=== PATIENT | male | born 1950 | race Caucasian/White ===

== ENCOUNTER 2017-11-13 05:40 | Outpatient (CLI) | payer MEDICARE, OTHER ==
[~2017-11-13] VITALS: Ht 185.4 cm; Wt 88.5 kg
[~2017-11-13 05:40] MED LIST: ASPI-586 PO; LOSA50TA36 PO
[2017-11-19] MEDS ORDERED: SUCR1TAB36 PO (10:51)
[2017-11-19] MEDS ORDERED: PANT40TA2 PO (10:51)
== END 2017-11-13 15:06 ==
LOC: PREOP 05:40
PROVIDERS: ATTEND Surgery
DX: Z01.818 Encounter for other preprocedural examination (principal); K21.9 Gastro-esophageal reflux disease without esophagitis; R14.2 Eructation

== ENCOUNTER 2017-11-19 09:17 | Day surgery (SDC) | payer MEDICARE, OTHER ==
[~2017-11-19] VITALS: Ht 185.4 cm; Wt 88.5 kg
[2017-11-19] MEDS ORDERED: LACTATED RINGERS 1,000 ML IV STA (09:49)
[2017-11-19] MEDS ORDERED: LACTATED RINGERS 1,000 ML IV ONE (09:53)
[2017-11-19 10:15] VITALS: BP 148/91
[2017-11-19] MEDS ORDERED: MIDAZOLAM 2 MG/2 ML (VERSED) VIAL ONE (10:15)
[2017-11-19] MEDS ORDERED: proPOfol 200 MG/20 ML (DIPRIVAN) VIAL IV ONE (10:15)
[2017-11-19] MEDS ORDERED: LIDOCAINE PF 2% 5 ML (XYLOCAINE) VIAL ONE (10:15)
--- NOTE | 2017-11-19 10:20 | Progress Note-Pre Operative ---
Pre-Operative Progress Note H&P Reviewed The H&P was reviewed, patient examined and no changes noted. Date Seen by Provider: Nov 19, 2017 Time Seen by Provider: : Date H&P Reviewed: Nov 19, 2017 Time H&P Reviewed: : Pre-Operative Diagnosis: GERD GALINA JAFFE DO Nov 19, 2017 10:20
[2017-11-19] MEDS ORDERED: ASPI-983 PO (10:22)
[2017-11-19] MEDS ORDERED: HURRICAINE EXT TUBE (BENZOCAINE) ONE (10:30)
--- NOTE | 2017-11-19 10:47 | Anesthesia-General Post-Op ---
MAC Patient Condition Mental Status/LOC: Same as Preop Cardiovascular: Satisfactory Nausea/Vomiting: Absent Respiratory: Satisfactory Pain: Controlled Complications: Absent Post Op Complications Complications None Follow Up Care/Instructions Patient Instructions None needed. Anesthesiology Discharge Order Discharge Order Patient is doing well, no complaints, stable vital signs, no apparent adverse anesthesia problems. No complications reported per nursing. PIERRE BRYAN CRNA Nov 19, 2017 10:47
--- NOTE | 2017-11-19 10:48 | Progress Note-Post Operative ---
Post-Operative Progess Note Surgeon (s)/Ross Lift Operator (s) Surgeon GALINA JAFFE DO Ross Lift Operator: na Pre-Operative Diagnosis GERD Post-Operative Diagnosis gastritis, hiatal hernia, reflux esophagitis Procedure & Operative Findings Date of Procedure 11/19/17 Procedure Performed/Findings egd c biopsies Anesthesia Type per modern languages professor Estimated Blood Loss Estimated blood loss (mL): scant Specimens/Packing Specimens Removed antrum, distal esophagus GALINA JAFFE DO Nov 19, 2017 10:48
[2017-11-19] MEDS ORDERED: SUCR1TAB36 PO (10:51)
[2017-11-19] MEDS ORDERED: PANT40TA2 PO (10:51)
--- NOTE | 2017-11-19 10:52 | Discharge Inst-Simple/Standard ---
Discharge Inst-Standard Discharge Medications New, Converted or Re-Newed RX: Transmitted to Pharmacy Patient Instructions/Follow Up Plan of Care/Instructions/FU: 2 weeks [place] Activity as Tolerated: Yes Discharge Diet: Regular Diet GALINA JAFFE DO Nov 19, 2017 10:52
[2017-11-19 11:00] VITALS: BP 127/80
[2017-11-19] MEDS ORDERED: HURRICAINE EXT TUBE (BENZOCAINE) XX ONE (11:00)
[2017-11-19 11:25] VITALS: BP 141/99
[2017-11-19 11:32] VITALS: BP 141/99
--- NOTE | 2017-11-19 18:44 | OPERATIVE REPORT ---
DATE OF SERVICE: 11/19/2017 PREOPERATIVE DIAGNOSIS: Gastroesophageal reflux disease. POSTOPERATIVE DIAGNOSES: Gastritis, hiatal hernia, reflux esophagitis. PROCEDURE: EGD with biopsy. SURGEON: Galina Whelan DO ANESTHESIA: Per DAIRY TRUCK DRIVER. ESTIMATED BLOOD LOSS: Scant. COMPLICATIONS: None. INDICATIONS: The patient is a 67-year-old male, who has been having gastroesophageal reflux disease and belching. He understands the risks and benefits of procedure and wished to proceed with procedure. Consent was signed on chart. PROCEDURE: The patient was taken to the endoscopy suite, placed in left later lateral recumbent position, timeout was performed. Scope was inserted in the mouth, down into esophagus. In the distal esophagus there was an area that has a little bit of blood and questionable ulceration present. Scope was passed through this without any difficulty and then into the duodenum without difficulty. There were no polyps, masses or ulcerations within the duodenum. Scope was slowly retracted back into the stomach where there are some erythematous patches consistent with gastritis. Biopsies were obtained. Scope was retroflexed noting hiatal hernia with some slight erythematous changes present. No other pathology noted. Scope was returned to his normal position slowly withdrawn back into the distal esophagus. There are some erythematous changes consistent with reflux esophagitis. There is one area where there is a little bit of bleeding from the biopsy of this area was obtained. The scope was then slowly retracted back until completely removed. RECOMMENDATIONS: The patient will be started on Protonix 40 mg daily and Carafate 1 gram 4 times a day. I will see him in 2 weeks to discuss pathology results. We would recommend repeat endoscopy in 3 months to reevaluate the area and rebiopsy depending upon pathology results. Job ID: [id number] DocumentID: [id number] Dictated Date: 11/19/2017 10:55:48 Pulverizer Feeder Date: 11/19/2017 18:44:16 Dictated By: GALINA WHELAN DO
== END 2017-11-19 11:33 | disposition home or self-care (01) ==
LOC: ENDO 09:17
PROVIDERS: ATTEND Surgery
DX: K21.0 Gastro-esophageal reflux disease with esophagitis (principal); K44.9 Diaphragmatic hernia without obstruction or gangrene; K29.70 Gastritis, unspecified, without bleeding; I10 Essential (primary) hypertension; Z79.899 Other long term (current) drug therapy

== ENCOUNTER 2018-01-28 05:34 | Outpatient (CLI) | payer MEDICARE, OTHER ==
[~2018-01-28] VITALS: Ht 185.4 cm; Wt 88.5 kg
[~2018-01-28 05:34] MED LIST changes: +ASPI-983 PO; +PANT40TA2 PO; +SUCR1TAB36 PO
[2018-01-28] MEDS ORDERED: PANT40TA3 PO (12:57)
== END 2018-01-28 12:59 | disposition home or self-care (01) ==
LOC: PREOP 05:34
PROVIDERS: ATTEND Surgery
DX: Z01.818 Encounter for other preprocedural examination (principal)

== ENCOUNTER 2018-03-24 04:58 | Emergency (ER) | payer MEDICARE, OTHER ==
[~2018-03-24] VITALS: Ht 185.4 cm; Wt 88.0 kg
[~2018-03-24 04:58] MED LIST changes: +PANT40TA3 PO
--- NOTE | 2018-03-24 05:34 | ED Abdominal Pain ---
General Chief Complaint: Abdominal/GI Problems Stated Complaint: ABD PAIN Nursing Triage Note: PATIENT HERE FOR CONCERNS REGARDING PAIN IN HIS LOWER MIDDLE ABDOMEN THAT STARTED APPROX 2000 YESTERDAY EVENING BEFORE BED. HE STATES THAT HE THINKS HE IS CONSTIPATED HE TRIED TO HAVE A BM AND ONLY A SMALL AMOUNT OF WATERY STILL CAME OUT. HE IS ALSO CONCERNED THAT HE MAY HAVE EATEN RAW HAMBURGER AT A PICNIC YESTERDAY. Sepsis Screen: No Definite Risk Source of Information: Patient Exam Limitations: No Limitations (NIDA CALLAHAN MD) History of Present Illness Date Seen by Provider: Mar 24, 2018 Time Seen by Provider: 05:20 Initial Comments This relatively healthy 67-year-old gentleman presents to the emergency room with complaints of lower abdominal pain starting around 22:00. The pain is constant. He denies any nausea or vomiting. He had been feeling constipated with a small stool yesterday morning. He has had liquid stools in the night 2. He has not taken any medication for the pain. He denies any prior episodes. He does feel bloated. He is afebrile. He has a history of erosive esophagitis and hiatal hernia has diagnosed with Dr. Whelan by EGD. He denies any urinary symptoms such as hesitancy, dysuria, or incomplete void. (NIDA CALLAHAN MD) Allergies and Home Medications Allergies Coded Allergies: No Known Drug Allergies (Unverified , 06/22/16) Home Medications Aspirin 81 Mg Tablet., 81 MG PO DAILY, (Reported) Ciprofloxacin HCl 500 Mg Tablet, 500 MG PO BID Prescribed by: AUDI HERNANDEZ on 03/24/18 0831 Losartan Potassium 50 Mg Tablet, 50 MG PO DAILY, (Reported) Metronidazole 500 Mg Tablet, 500 MG PO BID Prescribed by: AUDI HERNANDEZ on 03/24/18 0831 Pantoprazole Sodium 40 Mg Tablet., 40 MG PO DAILY, (Reported) Patient Home Medication List Home Medication List Reviewed: Yes (NIDA CALLAHAN MD) Review of Systems Constitutional: no symptoms reported EENTM: No Symptoms Reported Respiratory: No Symptoms Reported Cardiovascular: No Symptoms Reported Gastrointestinal: See HPI Genitourinary: No Symptoms Reported Musculoskeletal: no symptoms reported Skin: no symptoms reported Psychiatric/Neurological: No Symptoms Reported Endocrine: No Symptoms Reported Hematologic/Lymphatic: No Symptoms Reported (NIDA CALLAHAN MD) Past Ouucmxg-Fjgnme-Stgtte Hx Patient Social History Alcohol Use: Rarely Uses Recreational Drug Use: No Smoking Status: Never a Smoker 2nd Hand Smoke Exposure: No Recent Foreign Travel: No Contact w/Someone Who Travel: No Recent Infectious Disease Expo: No Recent Hopitalizations: No Physical Abuse: No Sexual Abuse: No (NIDA CALLAHAN MD) Immunizations Up To Date Date of Pneumonia Vaccine: May 22, 2016 Date of Influenza Vaccine: May 22, 2017 (NIDA CALLAHAN MD) Seasonal Allergies Seasonal Allergies: No (NIDA CALLAHAN MD) Past Medical History Surgeries: Yes Abdominal (EGD with biopsy) Respiratory: No Cardiac: Yes Hypertension Neurological: No Gastrointestinal: Yes Gastroesophageal Reflux, Diverticulosis, Esophagitis, Hiatal Hernia Musculoskeletal: No Endocrine: No HEENT: No Cancer: No Psychosocial: No Nursing Suicide Risk Score: 0 Integumentary: No Blood Disorders: No (NIDA CALLAHAN MD) Physical Exam Vital Signs Vital Signs - First Documented 03/24/18 05:05 Temp 96.9 Pulse 70 Resp 20 B/P (MAP) 156/103 (120) Pulse Ox 96 (AUDI HERNANDEZ MD) Vital Signs Capillary Refill : Less Than 3 Seconds (NIDA CALLAHAN MD) Height/Weight/BMI Height: 6'1.00" Weight: 194lbs. 0oz. 87.003140ha; 25.7 BMI Method:Stated General Appearance: WD/WN, no apparent distress HEENT: normal ENT inspection Neck: normal inspection Respiratory: lungs clear, normal breath sounds, no respiratory distress, no accessory muscle use Cardiovascular: regular rate, rhythm, no edema, no murmur Gastrointestinal: normal bowel sounds, soft, distended, other (palpation does not seem to increase his pain. Left upper quadrant is tympanic to percussion) Extremities: normal inspection, no pedal edema Neurologic/Psychiatric: telephone order dispatcher II-XII nml as tested, no motor/sensory deficits, alert, normal mood/affect, oriented x 3 Skin: normal color, warm/dry (NIDA CALLAHAN MD) Progress/Results/Core Measures Results/Orders Lab Results Laboratory Tests Test 8/13/18 05:45 Range/Units White Blood Count 9.3 4.3-11.0 10^3/uL Red Blood Count 4.76 4.35-5.85 10^6/uL Hemoglobin 14.8 13.3-17.7 G/DL Hematocrit 42 40-54 % Mean Corpuscular Volume 88 80-99 FL Mean Corpuscular Hemoglobin 31 25-34 PG Mean Corpuscular Hemoglobin Concent 35 32-36 G/DL Red Cell Distribution Width 13.7 10.0-14.5 % Platelet Count 199 130-400 10^3/uL Mean Platelet Volume 11.0 H 7.4-10.4 FL Neutrophils (%) (Auto) 70 42-75 % Lymphocytes (%) (Auto) 17 12-44 % Monocytes (%) (Auto) 9 0-12 % Eosinophils (%) (Auto) 4 0-10 % Basophils (%) (Auto) 0 0-10 % Neutrophils # (Auto) 6.5 1.8-7.8 X 10^3 Lymphocytes # (Auto) 1.6 1.0-4.0 X 10^3 Monocytes # (Auto) 0.8 0.0-1.0 X 10^3 Eosinophils # (Auto) 0.3 0.0-0.3 10^3/uL Basophils # (Auto) 0.0 0.0-0.1 10^3/uL Urine Color YELLOW Urine Clarity CLEAR Urine pH 7 5-9 Urine Specific [place] 1.010 L 1.016-1.022 Urine Protein NEGATIVE NEGATIVE Urine Glucose (UA) NEGATIVE NEGATIVE Urine Ketones NEGATIVE NEGATIVE Urine Nitrite NEGATIVE NEGATIVE Urine Bilirubin NEGATIVE NEGATIVE Urine Urobilinogen NORMAL NORMAL MG/DL Urine Leukocyte Esterase NEGATIVE NEGATIVE Urine RBC (Auto) 1+ H NEGATIVE Urine RBC 2-5 H /HPF Urine WBC NONE /HPF Urine Squamous Epithelial Cells 0-2 /HPF Urine Crystals NONE /LPF Urine Bacteria NEGATIVE /HPF Urine Casts NONE /LPF Urine Mucus SMALL H /LPF Urine Culture Indicated NO Sodium Level 136 135-145 MMOL/L Potassium Level 4.1 3.6-5.0 MMOL/L Chloride Level 106 98-107 MMOL/L Carbon Dioxide Level 21 21-32 MMOL/L Anion Gap 9 5-14 MMOL/L Blood Urea Nitrogen 13 7-18 MG/DL Creatinine 0.85 0.60-1.30 MG/DL Estimat Glomerular Filtration Rate > 60 BUN/Creatinine Ratio 15 Glucose Level 96 70-105 MG/DL Calcium Level 8.6 8.5-10.1 MG/DL Corrected Calcium 8.5 8.5-10.1 MG/DL Total Bilirubin 1.0 0.1-1.0 MG/DL Aspartate Amino Transf (AST/SGOT) 16 5-34 U/L Alanine Aminotransferase (ALT/SGPT) 20 0-55 U/L Alkaline Phosphatase 74 40-136 U/L Total Protein 7.2 6.4-8.2 GM/DL Albumin 4.1 3.2-4.5 GM/DL Lipase 45 8-78 U/L (AUDI HERNANDEZ MD) My Orders Orders - AUDI HERNANDEZ MD Ct Abdomen/Pelvis W (03/24/18 06:47) Saline Lock/Iv-Start (03/24/18 06:47) Ns Iv 1000 Ml (Sodium Chloride 0.9%) (03/24/18 06:47) Iohexol Injection (Omnipaque 350 Mg/Ml 1 (03/24/18 07:30) Ns (Ivpb) (Sodium Chloride 0.9%) (03/24/18 07:30) (AUDI HERNANDEZ MD) Medications Given in ED Current Medications Medications Dose Ordered Sig/Reese Route Start Time Stop Time Status Last Admin Dose Admin Iohexol 100 ml ONCE ONCE IV 03/24/18 07:30 03/24/18 07:42 DC 03/24/18 07:24 100 ML Sodium Chloride 80 ml ONCE ONCE IV 03/24/18 07:30 03/24/18 07:42 DC 03/24/18 07:24 80 ML Sodium Chloride 1,000 ml @ 0 mls/hr Q0M ONCE IV 03/24/18 06:47 03/24/18 06:48 DC 03/24/18 06:55 0 MLS/HR (AUDI HERNANDEZ MD) Vital Signs/I&O 03/24/18 05:05 Temp 96.9 Pulse 70 Resp 20 B/P (MAP) 156/103 (120) Pulse Ox 96 (AUDI HERNANDEZ MD) Blood Pressure Mean: 120 Progress Progress Note #1: Progress Note Basic workup is being pursued including labs, urinalysis, and KUB and upright abdominal films. Patient declined pain medicine at this time. Progress Note #2: Time: 06:47 Progress Note Workup to this point has been unremarkable. Patient is still having pain. We discussed options for further evaluation including the potential for CT scan. Risks and benefits were reviewed with the patient including radiation exposure, cost, contrast dye allergy, potential for exposure pathology, etc. Patient elects to proceed with CT scan. Care of this patient was transferred to Dr. Hernandze at this time. She continues to decline pain medicine. (NIDA CALLAHAN MD) Progress Note : Progress Note 0700: I have assumed care of the patient from Dr. Rao pending CT. I have reexamined the patient. Specifically tender on exam but does relate the lower abdominal pain. Patient is going to CT now. We have ordered a liter of normal saline. Patient is still declining pain medicine. (AUDI HENRANDEZ MD) Diagnostic Imaging Diagonstic Imaging: Xray Plain Films/CT/US/NM/MRI: abdomen, pelvis Comments X-rays viewed by me and report reviewed. See report below: NAME: LACI SMITH [facility] REC#: [id number] PT STATUS: REG ER : 1950 PHYSICIAN: NIDA CALLAHAN MD ADMIT DATE: 03/24/18/ER Draft Date of Exam:03/24/18 ABDOMEN, FLAT UPRIGHT/DECUB EXAMINATION: Abdominal radiographs, upright and supine views. DATE: March 24, 2018. CLINICAL INDICATION: 67-year-old male, abdominal pain, constipation. COMPARISON: None. COMMENTS: There is a moderate volume stool in the right colon. There are no abnormally distended gas-filled segments of small or large bowel. There is no identified free intraperitoneal air. There is no identified pneumatosis or portal venous gas. There is no identified abnormal radiodensity overlying the kidneys or expected positions of the ureters. IMPRESSION: 1. No acute abdominal radiographic abnormality. 2. Moderate volume stool within the right colon. Dictated on workstation # [id number] Dict: 03/24/18605 Trans: 03/24/18 0617 [id number] Interpreted by: ELIZABETH HOWARD MD (NIDA CALLAHAN MD) Diagonstic Imaging: CT Plain Films/CT/US/NM/MRI: abdomen, pelvis Comments EXAMINATION: CT of the abdomen and pelvis with contrast dated 03/24/2018 FINDINGS: There is diffuse inflammatory change about the sigmoid colon with multiple adjacent diverticuli noted. Wall thickening within the region is also noted. There are a few tiny foci of air along the anterior border of the sigmoid in this region most likely within diverticuli, less likely a tiny focal contained perforation. No abscess is seen at this time. There is no significant free air. The remaining colon demonstrates no acute abnormality. The liver demonstrates fatty infiltration, otherwise unremarkable. The gallbladder, spleen, pancreas, and adrenal glands unremarkable. Small cystic area within the medial aspect of the superior pole of the left kidney noted and too small to characterize. Right kidney contains a large partially exophytic cystic lesion measuring 5.8 cm in greatest dimension. Hounsfield units consistent with a cyst. There is no free fluid or air in the abdomen. There are fat-containing inguinal hernias, left larger than right. Clips along the inguinal regions right greater than left also noted. Prominent but nonenlarged lymph nodes not significantly enlarged lymph nodes seen in the inguinal regions bilaterally as well. There is a tiny hiatal hernia. Visualized lung bases demonstrate nonspecific subpleural nodule within the left lower lobe image #13, 4 mm in size. This could be followed to assure stability as clinically warranted. Especially if there is a history of smoking. Remaining visualized lung bases unremarkable. Osseous structures demonstrate no acute abnormality. Degenerative findings noted in the visualized spine. IMPRESSION: 1. Findings consistent with acute diverticulitis of the sigmoid colon. A few tiny foci of air in the region likely prominent diverticuli rather than a small contained perforation. No significant free air seen. No abscess appreciated. 2. Wall thickening in the region of concern likely secondary to the inflammation although followup is recommended to assure resolution and exclude underlying mass. 3. Other Incidental findings as noted above. Dictated on workstation # [id number] Dict: 03/24/18 0723 Trans: 03/24/18 0751 [id number] Interpreted by: NOE WOODARD MD Electronically signed by: Reviewed: Reviewed by Me (AUDI HERNANDEZ MD) Departure Impression Primary Impression: Diverticulitis of intestine Qualified Codes: K57.32 - Diverticulitis of large intestine without perforation or abscess without bleeding Additional Impression: Pulmonary nodule Disposition: HOME, SELF-CARE Condition: Improved Departure-Patient Inst. Decision time for Depature: 08:27 (AUDI HERNANDEZ MD) Referrals: PEPE COVARRUBIAS MD (PCP/Family) Primary Care Physician Patient Instructions: Acute Abdomen (Belly Pain), Adult (DC), Diverticulitis ( DC), Single Pulmonary Nodule Add. Discharge Instructions: All discharge instructions reviewed with patient and/or family. Voiced understanding. Take medications as directed. Clear liquid diet for 24 hours and then advance as tolerated slowly. You may take Tylenol 1000 mg every 8 hours as needed for pain. You may take ibuprofen 800 mg every 8 hours as needed for pain. Follow- up with your Dr. in a few days for recheck. You do need to follow-up with Dr. Covarrubias related to the small pulmonary nodule just to establish follow-up as needed. Return for worse pain, fever, vomiting, weakness, breathing problems or other concerns as needed. Scripts Metronidazole (Metronidazole) 500 Mg Tablet 500 MG PO BID, #14 TAB 0 Refills Prov: AUDI HERNANDEZ MD 03/24/18 Ciprofloxacin HCl (Ciprofloxacin HCl) 500 Mg Tablet 500 MG PO BID, #14 TAB Prov: AUDI HERNANDEZ MD 03/24/18 Copy Copies To 1: PEPE COVARRUBIAS MD, JOSHUA T MD Mar 24, 2018 05:34 AUDI HERNANDEZ MD Mar 24, 2018 07:09
[2018-03-24 05:55] LABS: BASOPHILS % (AUTO) 0 % (0-10); EOSINOPHILS # (AUTO) 0.3 10^3/uL (0.0-0.3); EOSINOPHILS % (AUTO) 4 % (0-10); HEMATOCRIT 42 % (40-54); HEMOGLOBIN 14.8 G/DL (13.3-17.7); LYMPHOCYTES # (AUTO) 1.6 X 10^3 (1.0-4.0); LYMPHOCYTES % (AUTO) 17 % (12-44); MEAN CORPUSCULAR HEMOGLOBIN 31 PG (25-34); MEAN CORPUSCULAR HGB CONC 35 G/DL (32-36); MEAN CORPUSCULAR VOLUME 88 FL (80-99); MONOCYTES # (AUTO) 0.8 X 10^3 (0.0-1.0); MONOCYTES % (AUTO) 9 % (0-12); NEUTROPHILS # (AUTO) 6.5 X 10^3 (1.8-7.8); NEUTROPHILS % (AUTO) 70 % (42-75); PLATELET COUNT 199 10^3/uL (130-400); RED BLOOD COUNT 4.76 10^6/uL (4.35-5.85); RED CELL DISTRIBUTION WIDTH 13.7 % (10.0-14.5); WHITE BLOOD COUNT 9.3 10^3/uL (4.3-11.0)
[2018-03-24 06:03] LABS: BILIRUBIN,URINE NEGATIVE (NEGATIVE); CLARITY,URINE CLEAR; COLOR,URINE YELLOW; GLUCOSE, URINE (UA) NEGATIVE (NEGATIVE); KETONES,URINE NEGATIVE (NEGATIVE); LEUKOCYTE ESTERASE ,URINE NEGATIVE (NEGATIVE); NITRITE,URINE NEGATIVE (NEGATIVE); PH,URINE 7 (5-9); PROTEIN,URINE NEGATIVE (NEGATIVE); UROBILINOGEN,URINE NORMAL (NORMAL)
[2018-03-24 06:16] LABS: ALANINE AMINOTRANSFERASE 20 U/L (0-55); ALBUMIN 4.1 GM/DL (3.2-4.5); ALKALINE PHOSPHATASE 74 U/L (40-136); BUN/CREATININE RATIO 15; CALCIUM 8.6 MG/DL (8.5-10.1); CARBON DIOXIDE 21 MMOL/L (21-32); CHLORIDE 106 MMOL/L (98-107); CREATININE SERUM 0.85 MG/DL (0.60-1.30); GFR ESTIMATED > 60; GLUCOSE 96 MG/DL (70-105); LIPASE 45 U/L (8-78); POTASSIUM 4.1 MMOL/L (3.6-5.0); SODIUM 136 MMOL/L (135-145); TOTAL PROTEIN 7.2 GM/DL (6.4-8.2)
--- NOTE | 2018-03-24 06:18 | Diagnostic Imaging Report ---
EXAMINATION: Abdominal radiographs, upright and supine views. DATE: March 24, 2018. CLINICAL INDICATION: 67-year-old male, abdominal pain, constipation. COMPARISON: None. COMMENTS: There is a moderate volume stool in the right colon. There are no abnormally distended gas-filled segments of small or large bowel. There is no identified free intraperitoneal air. There is no identified pneumatosis or portal venous gas. There is no identified abnormal radiodensity overlying the kidneys or expected positions of the ureters. IMPRESSION: 1. No acute abdominal radiographic abnormality. 2. Moderate volume stool within the right colon. Dictated by: Dictated on workstation # [id number]
[2018-03-24 06:26] LABS: BACTERIA,URINE NEGATIVE /HPF; SQUAMOUS EPITHELIAL CELL,UR 0-2 /HPF
[2018-03-24] MEDS ORDERED: NS IV 1000 ML 1,000 ML IV ONE (06:47)
[2018-03-24] MEDS ORDERED: IOHEXOL 350 MG/ML 100 ML (OMNIPAQUE 350) VIAL IV ONE (07:30)
[2018-03-24] MEDS ORDERED: NS 250 ML (IVPB) BAG IV ONE (07:30)
--- NOTE | 2018-03-24 07:52 | Diagnostic Imaging Report ---
PROCEDURE: CT abdomen and pelvis with contrast. TECHNIQUE: Multiple contiguous axial images were obtained through the abdomen and pelvis after administration of intravenous contrast. INDICATION: Abdominal pain. EXAMINATION: CT of the abdomen and pelvis with contrast dated 03/24/2018 FINDINGS: There is diffuse inflammatory change about the sigmoid colon with multiple adjacent diverticuli noted. Wall thickening within the region is also noted. There are a few tiny foci of air along the anterior border of the sigmoid in this region most likely within diverticuli, less likely a tiny focal contained perforation. No abscess is seen at this time. There is no significant free air. The remaining colon demonstrates no acute abnormality. The liver demonstrates fatty infiltration, otherwise unremarkable. The gallbladder, spleen, pancreas, and adrenal glands unremarkable. Small cystic area within the medial aspect of the superior pole of the left kidney noted and too small to characterize. Right kidney contains a large partially exophytic cystic lesion measuring 5.8 cm in greatest dimension. Hounsfield units consistent with a cyst. There is no free fluid or air in the abdomen. There are fat-containing inguinal hernias, left larger than right. Clips along the inguinal regions right greater than left also noted. Prominent but nonenlarged lymph nodes not significantly enlarged lymph nodes seen in the inguinal regions bilaterally as well. There is a tiny hiatal hernia. Visualized lung bases demonstrate nonspecific subpleural nodule within the left lower lobe image #13, 4 mm in size. This could be followed to assure stability as clinically warranted. Especially if there is a history of smoking. Remaining visualized lung bases unremarkable. Osseous structures demonstrate no acute abnormality. Degenerative findings noted in the visualized spine. IMPRESSION: 1. Findings consistent with acute diverticulitis of the sigmoid colon. A few tiny foci of air in the region likely prominent diverticuli rather than a small contained perforation. No significant free air seen. No abscess appreciated. 2. Wall thickening in the region of concern likely secondary to the inflammation although followup is recommended to assure resolution and exclude underlying mass. 3. Other Incidental findings as noted above. Dictated by: Dictated on workstation # [id number]
[2018-03-24] MEDS ORDERED: CIPR500T4 PO (08:31)
[2018-03-24] MEDS ORDERED: METR500T21 PO (08:31)
[2018-03-24 08:40] VITALS: BP 156/103
== END 2018-03-24 08:40 | disposition home or self-care (01) ==
LOC: EDUNIT# 04:58 → ER 05:00
DX: K57.32 Diverticulitis of large intestine without perforation or abscess without bleeding (principal); R91.1 Solitary pulmonary nodule; I10 Essential (primary) hypertension; K21.9 Gastro-esophageal reflux disease without esophagitis; Z87.19 Personal history of other diseases of the digestive system; Z79.82 Long term (current) use of aspirin
CPT/HCPCS: 36415; 74019; 74177; 80053; 81000; 83690; 85025

== ENCOUNTER 2018-04-14 08:35 | Emergency (ER) | payer MEDICARE, OTHER ==
[~2018-04-14] VITALS: Ht 185.4 cm; Wt 88.0 kg
[~2018-04-14 08:35] MED LIST changes: +CIPR500T4 PO; -LOSA50TA36 PO; +LOSA50TA7 PO; +METR500T21 PO
--- NOTE | 2018-04-14 09:06 | ED Abdominal Pain ---
General Chief Complaint: Abdominal/GI Problems Stated Complaint: STOMACH ISSUES Nursing Triage Note: PT PRESENTS WITH RECENT DX OF DIVERTICULITIS, CC TODAY OF SEVERAL LOOSE BM'S AND ABD PAIN. Sepsis Screen: No Definite Risk Source of Information: Patient, Spouse Exam Limitations: No Limitations History of Present Illness Date Seen by Provider: Apr 14, 2018 Time Seen by Provider: 08:55 Initial Comments The patient presents to the ER by private conveyance with chief complaint that for the past 2 days he's had some loose watery stools, middle of the get abdominal discomfort without any nausea or vomiting. He is woke up a couple times in the last night with some sweats but no documented fevers. Recently he' s been having a lot of constipation and is not using anything for that. His thinks is related to his diet since he's been eating some milk and dairy and ice cream and he suspects that he might be lactose intolerant. He is not taking any kind of lactate are similar supplement. He stopped eating the lactose yesterday and he felt like his get discomfort gotten better. Presently it's about 5-6 out of 10. Use ibuprofen yesterday morning and that helped his pain significantly. He is concerned because earlier in the year he was diagnosed here with diverticulitis. He is not seeing any blood in the stool but he does see some Little bits of blood when he wipes. He does have some hemorrhoids and he says they are quite prominent since he's been constipated. No surgeries on the belly. No hernias. Allergies and Home Medications Allergies Coded Allergies: No Known Drug Allergies (Unverified , 06/22/16) Home Medications Aspirin 81 Mg Tablet., 81 MG PO DAILY, (Reported) Ciprofloxacin HCl 500 Mg Tablet, 500 MG PO BID Prescribed by: AUDI HERNANDEZ on 03/24/18 08 Losartan Potassium 50 Mg Tablet, 50 MG PO DAILY, (Reported) Metronidazole 500 Mg Tablet, 500 MG PO BID Prescribed by: AUDI HERNANDEZ on 03/24/18 08 Pantoprazole Sodium 40 Mg Tablet., 40 MG PO DAILY, (Reported) Patient Home Medication List Home Medication List Reviewed: Yes Review of Systems Review of Systems Constitutional: No chills; diaphoresis; No fever, No malaise EENTM: No Blurred Vision, No Double Vision Respiratory: Denies Cough, Denies Shortness of Air Cardiovascular: Denies Chest Pain, Denies Edema Gastrointestinal: See HPI; Denies Abdomen Distended; Abdominal Pain, Constipated, Diarrhea; Denies Nausea; Rectal Bleeding; Denies Vomiting Genitourinary: Denies Burning, Denies Discharge Musculoskeletal: No back pain, No joint pain Skin: No pruritus, No rash Past Knzwhpc-Dfegjh-Vqglkw Hx Patient Social History 2nd Hand Smoke Exposure: No Recent Foreign Travel: No Contact w/Someone Who Travel: No Recent Infectious Disease Expo: No Recent Hopitalizations: No Immunizations Up To Date Date of Pneumonia Vaccine: May 22, 2016 Date of Influenza Vaccine: May 22, 2017 Seasonal Allergies Seasonal Allergies: No Past Medical History Surgeries: Yes Abdominal Respiratory: No Cardiac: Yes Hypertension Neurological: No Gastrointestinal: Yes Gastroesophageal Reflux, Diverticulosis, Esophagitis, Hiatal Hernia Musculoskeletal: No Endocrine: No HEENT: No Cancer: No Psychosocial: No Integumentary: No Blood Disorders: No Physical Exam Vital Signs Vital Signs - First Documented 04/14/18 08:54 Temp 96.4 Pulse 67 Resp 20 B/P (MAP) 138/98 (111) Pulse Ox 96 O2 Delivery Room Air Capillary Refill : Less Than 3 Seconds Height/Weight/BMI Height: 6'1.00" Weight: 194lbs. 0oz. 87.993928le; 25.7 BMI Method:Stated General Appearance: WD/WN, no apparent distress HEENT: PERRL/EOMI, pharynx normal Respiratory: lungs clear, normal breath sounds, no respiratory distress, no accessory muscle use Cardiovascular: normal peripheral pulses, regular rate, rhythm, no edema Gastrointestinal: non tender, soft, other (very active bowel sounds all 4 quadrants) Extremities: normal range of motion, non-tender, normal inspection, normal capillary refill Neurologic/Psychiatric: alert, oriented x 3 Skin: normal color, warm/dry Progress/Results/Core Measures Results/Orders Lab Results Laboratory Tests Test 04/14/18 09:13 Range/Units White Blood Count 6.0 4.3-11.0 10^3/uL Red Blood Count 4.58 4.35-5.85 10^6/uL Hemoglobin 14.3 13.3-17.7 G/DL Hematocrit 40 40-54 % Mean Corpuscular Volume 87 80-99 FL Mean Corpuscular Hemoglobin 31 25-34 PG Mean Corpuscular Hemoglobin Concent 36 32-36 G/DL Red Cell Distribution Width 13.1 10.0-14.5 % Platelet Count 230 130-400 10^3/uL Mean Platelet Volume 10.6 H 7.4-10.4 FL Neutrophils (%) (Auto) 71 42-75 % Lymphocytes (%) (Auto) 18 12-44 % Monocytes (%) (Auto) 8 0-12 % Eosinophils (%) (Auto) 3 0-10 % Basophils (%) (Auto) 0 0-10 % Neutrophils # (Auto) 4.2 1.8-7.8 X 10^3 Lymphocytes # (Auto) 1.1 1.0-4.0 X 10^3 Monocytes # (Auto) 0.5 0.0-1.0 X 10^3 Eosinophils # (Auto) 0.2 0.0-0.3 10^3/uL Basophils # (Auto) 0.0 0.0-0.1 10^3/uL Urine Color YELLOW Urine Clarity CLEAR Urine pH 5 5-9 Urine Specific [place] 1.025 H 1.016-1.022 Urine Protein 1+ H NEGATIVE Urine Glucose (UA) NEGATIVE NEGATIVE Urine Ketones NEGATIVE NEGATIVE Urine Nitrite NEGATIVE NEGATIVE Urine Bilirubin NEGATIVE NEGATIVE Urine Urobilinogen NORMAL NORMAL MG/DL Urine Leukocyte Esterase NEGATIVE NEGATIVE Urine RBC (Auto) 2+ H NEGATIVE Urine RBC NONE /HPF Urine WBC 0-2 /HPF Urine Squamous Epithelial Cells NONE /HPF Urine Crystals NONE /LPF Urine Bacteria MODERATE H /HPF Urine Casts NONE /LPF Urine Mucus LARGE H /LPF Urine Culture Indicated NO Sodium Level 138 135-145 MMOL/L Potassium Level 3.7 3.6-5.0 MMOL/L Chloride Level 107 98-107 MMOL/L Carbon Dioxide Level 21 21-32 MMOL/L Anion Gap 10 5-14 MMOL/L Blood Urea Nitrogen 12 7-18 MG/DL Creatinine 0.95 0.60-1.30 MG/DL Estimat Glomerular Filtration Rate > 60 BUN/Creatinine Ratio 13 Glucose Level 147 H 70-105 MG/DL Calcium Level 8.9 8.5-10.1 MG/DL Corrected Calcium 8.9 8.5-10.1 MG/DL Magnesium Level 2.4 1.8-2.4 MG/DL Total Bilirubin 1.1 H 0.1-1.0 MG/DL Aspartate Amino Transf (AST/SGOT) 16 5-34 U/L Alanine Aminotransferase (ALT/SGPT) 26 0-55 U/L Alkaline Phosphatase 63 40-136 U/L C-Reactive Protein High Sensitivity 2.77 H 0.00-0.50 MG/DL Total Protein 7.2 6.4-8.2 GM/DL Albumin 4.0 3.2-4.5 GM/DL Lipase 36 8-78 U/L My Orders Orders - VI AGUILAR Cbc With Automated Diff (04/14/18 09:00) Comprehensive Metabolic Panel (04/14/18 09:00) Hs C Reactive Protein (04/14/18:00) Lipase (04/14/18:00) Magnesium (04/14/18:) Ua Culture If Indicated (04/14/18:00) Abdomen, Flat & Upright/Decub (04/14/18:00) Saline Lock/Iv-Start (04/14/18:00) Vital Signs/I&O 04/14/18 08:54 Temp 96.4 Pulse 67 Resp 20 B/P (MAP) 138/98 (111) Pulse Ox 96 O2 Delivery Room Air Blood Pressure Mean: 111 Progress Progress Note #1: Time: 09:05 Progress Note The patient presents in no acute distress. He does not have a surgical abdomen. There are no mesenteric signs. We'll check some labs and plain film of his abdomen thing about constipation, lactose intolerance etc. However if any of his labs are remotely concerning would have us limb trigger to obtain a CT of the abdomen to rule out a early onset of diverticulitis. His bowels sound very active however his story doesn't sound like a complete bowel obstruction. He is declining anything for pain or nausea at this time. Progress Note #2: Time: 10:20 Progress Note Clinical exam, labs and x-ray would best be supportive of a mild diverticulitis at this time. Put him on some Probiotics three times a day. We'll do Augmentin 3 times a day for a week and have him follow-up with the primary care provider later this week or early next week. Diagnostic Imaging Diagonstic Imaging: Xray Plain Films/CT/US/NM/MRI: abdomen (KUB, upright and decub) Comments VIA [facility]. [place], [place] NAME: LACI SMITH [facility] REC#: [id number] PT STATUS: REG ER : 1950 PHYSICIAN: VI AGUILAR MD ADMIT DATE: 04/14/18/ER Draft Date of Exam:04/14/18 ABDOMEN, FLAT & UPRIGHT/DECUB INDICATION: Recent diagnosis of diverticulitis. Complaining of constipation, intermittent with diarrhea and lower abdominal pain. Comparison with CT abdomen and pelvis 03/24/2018. FINDINGS: Upright film shows no evidence of free air. There are no air-fluid levels. The ascending, transverse and proximal descending colon shows normal stool. There is no stool demonstrated in the sigmoid colon or rectum. Stomach and small bowel are not distended. There is no organomegaly. No free air. The lung bases are clear. IMPRESSION: Gasless distal colon. This would be consistent with diverticulitis reported. No evidence of constipation or bowel obstruction at this time. Dictated on workstation # [id number] Dict: 04/14/18 0944 Trans: 04/14/18 0949 [facility] [id number] Interpreted by: FABIOLA PEREZ MD Electronically signed by: Reviewed: Reviewed by Me Departure Impression Primary Impression: Diverticulitis of intestine Qualified Codes: K57.32 - Diverticulitis of large intestine without perforation or abscess without bleeding Disposition: 01 HOME, SELF-CARE Condition: Stable Departure-Patient Inst. Decision time for Depature: 10:30 Referrals: PEPE OAKES MD (PCP/Family) Primary Care Physician Patient Instructions: Diverticulitis (DC) Add. Discharge Instructions: line up examiner the Augmentin and start taking it with food 3 times a day. Drink plenty of fluids. If you have nausea you can take the ondansetron one tablet every 6 hours as needed. Probiotics three times a day. MiraLAX 1 capful in 6 ounces of fluid daily until you've passed some stools. Follow-up with the primary care provider later this week or early next week. If you start to have fevers chills or intractable nausea vomiting then you should return to the ER for further evaluation. All discharge instructions reviewed with patient and/or family. Voiced understanding. Scripts Amoxicillin/Potassium Clav (Augmentin 875-125 Tablet) 1 Each Tablet 1 EACH PO TIDWM for 7 Days, #21 TAB 0 Refills Prov: VI AGUILAR 04/14/18 Ondansetron (Ondansetron Odt) 4 Mg Tab.rapdis 4 MG PO Q6H PRN for NAUSEA/VOMITING, #8 TAB 0 Refills Prov: VI AGUILAR 04/14/18 Copy Copies To 1: PEPE OAKES MD, TITUS J Apr 14, 2018 09:06
[2018-04-14 09:29] LABS: BILIRUBIN,URINE NEGATIVE (NEGATIVE); COLOR,URINE YELLOW; GLUCOSE, URINE (UA) NEGATIVE (NEGATIVE); KETONES,URINE NEGATIVE (NEGATIVE); LEUKOCYTE ESTERASE ,URINE NEGATIVE (NEGATIVE); NITRITE,URINE NEGATIVE (NEGATIVE); PH,URINE 5 (5-9); PROTEIN,URINE 1+ (NEGATIVE); UROBILINOGEN,URINE NORMAL (NORMAL)
[2018-04-14 09:32] LABS: BASOPHILS % (AUTO) 0 % (0-10); EOSINOPHILS # (AUTO) 0.2 10^3/uL (0.0-0.3); EOSINOPHILS % (AUTO) 3 % (0-10); HEMATOCRIT 40 % (40-54); HEMOGLOBIN 14.3 G/DL (13.3-17.7); LYMPHOCYTES # (AUTO) 1.1 X 10^3 (1.0-4.0); LYMPHOCYTES % (AUTO) 18 % (12-44); MEAN CORPUSCULAR HEMOGLOBIN 31 PG (25-34); MEAN CORPUSCULAR HGB CONC 36 G/DL (32-36); MEAN CORPUSCULAR VOLUME 87 FL (80-99); MEAN PLATELET VOLUME 10.6 FL (7.4-10.4); MONOCYTES # (AUTO) 0.5 X 10^3 (0.0-1.0); MONOCYTES % (AUTO) 8 % (0-12); NEUTROPHILS # (AUTO) 4.2 X 10^3 (1.8-7.8); NEUTROPHILS % (AUTO) 71 % (42-75); PLATELET COUNT 230 10^3/uL (130-400); RED BLOOD COUNT 4.58 10^6/uL (4.35-5.85); RED CELL DISTRIBUTION WIDTH 13.1 % (10.0-14.5)
[2018-04-14 09:36] LABS: BACTERIA,URINE MODERATE /HPF; WBC,URINE 0-2 /HPF
[2018-04-14 09:38] LABS: CLARITY,URINE CLEAR
--- NOTE | 2018-04-14 09:49 | Diagnostic Imaging Report ---
INDICATION: Recent diagnosis of diverticulitis. Complaining of constipation, intermittent with diarrhea and lower abdominal pain. Comparison with CT abdomen and pelvis 03/24/2018. FINDINGS: Upright film shows no evidence of free air. There are no air-fluid levels. The ascending, transverse and proximal descending colon shows normal stool. There is no stool demonstrated in the sigmoid colon or rectum. Stomach and small bowel are not distended. There is no organomegaly. No free air. The lung bases are clear. IMPRESSION: Gasless distal colon. This would be consistent with diverticulitis reported. No evidence of constipation or bowel obstruction at this time. Dictated by: Dictated on workstation # [id number]
[2018-04-14 09:51] LABS: ALANINE AMINOTRANSFERASE 26 U/L (0-55); ALKALINE PHOSPHATASE 63 U/L (40-136); BILIRUBIN,TOTAL 1.1 MG/DL (0.1-1.0); BUN/CREATININE RATIO 13; CALCIUM 8.9 MG/DL (8.5-10.1); CARBON DIOXIDE 21 MMOL/L (21-32); CHLORIDE 107 MMOL/L (98-107); CREATININE SERUM 0.95 MG/DL (0.60-1.30); GFR ESTIMATED > 60; GLUCOSE 147 MG/DL (70-105); LIPASE 36 U/L (8-78); MAGNESIUM 2.4 MG/DL (1.8-2.4); POTASSIUM 3.7 MMOL/L (3.6-5.0); SODIUM 138 MMOL/L (135-145); TOTAL PROTEIN 7.2 GM/DL (6.4-8.2)
[2018-04-14] MEDS ORDERED: AMOX-358 PO (10:32)
[2018-04-14] MEDS ORDERED: ONDA4TAB11 PO (10:32)
[2018-04-14 10:44] VITALS: BP 137/98
== END 2018-04-14 10:44 | disposition home or self-care (01) ==
LOC: EDUNIT# 08:35 → ER 08:36
DX: K57.32 Diverticulitis of large intestine without perforation or abscess without bleeding (principal); R10.9 Unspecified abdominal pain; I10 Essential (primary) hypertension; K21.9 Gastro-esophageal reflux disease without esophagitis; Z87.19 Personal history of other diseases of the digestive system; Z79.82 Long term (current) use of aspirin
CPT/HCPCS: 36415; 74019; 80053; 81000; 83690; 83735; 85025; 86141

== ENCOUNTER 2018-06-03 05:36 | Outpatient (CLI) | payer MEDICARE, OTHER ==
[~2018-06-03] VITALS: Ht 185.4 cm; Wt 88.0 kg
[~2018-06-03 05:36] MED LIST changes: +AMOX-358 PO; +ONDA4TAB11 PO
== END 2018-06-03 10:59 | disposition home or self-care (01) ==
LOC: PREOP 05:36
PROVIDERS: ATTEND Surgery
DX: Z01.818 Encounter for other preprocedural examination (principal)

== ENCOUNTER 2018-06-10 09:54 | Day surgery (SDC) | payer MEDICARE, OTHER ==
[~2018-06-10] VITALS: Ht 185.4 cm; Wt 88.0 kg
[~2018-06-10 09:54] MED LIST changes: +METR-197 PO; -METR500T21 PO
[2018-06-10] MEDS ORDERED: LACTATED RINGERS 1,000 ML IV ONE (10:05)
[2018-06-10 10:16] VITALS: BP 135/100
[2018-06-10] MEDS ORDERED: PROPOFOL INJECTION 50 ML IV ONE (10:17)
[2018-06-10] MEDS ORDERED: MIDAZOLAM 2 MG/2 ML (VERSED) VIAL ONE (10:18)
--- NOTE | 2018-06-10 11:04 | Progress Note-Pre Operative ---
Pre-Operative Progress Note H&P Reviewed The H&P was reviewed, patient examined and no changes noted. Date Seen by Provider: Jun 10, 2018 Time Seen by Provider: 11:03 Date H&P Reviewed: Jun 10, 2018 Time H&P Reviewed: 11:04 Pre-Operative Diagnosis: hx diverticulitis GALINA JAFFE DO Jun 10, 2018 11:04
[2018-06-10] MEDS ORDERED: LACTATED RINGERS 1,000 ML IV SCH (11:15)
--- NOTE | 2018-06-10 11:27 | Progress Note-Post Operative ---
Post-Operative Progess Note Surgeon (s)/Manager Linux (s) Surgeon GALINA JAFFE DO Manager Linux: na Pre-Operative Diagnosis hx diverticulitis Post-Operative Diagnosis diverticulosis Procedure & Operative Findings Date of Procedure 06/10/18 Procedure Performed/Findings colonoscopy Anesthesia Type per sales review clerk Estimated Blood Loss Estimated blood loss (mL): none Specimens/Packing Specimens Removed na GALINA JAFFE DO Jun 10, 2018 11:27
--- NOTE | 2018-06-10 11:28 | Discharge Inst-Simple/Standard ---
Discharge Inst-Standard Patient Instructions/Follow Up Plan of Care/Instructions/FU: repeat colonoscopy in 5 years, any issues before then be seen at that time. Activity as Tolerated: Yes Discharge Diet: Regular Diet GALINA JAFFE DO Jun 10, 2018 11:28
[2018-06-10 11:40] VITALS: BP 127/77
[2018-06-10 12:10] VITALS: BP 148/100
[2018-06-10 12:20] VITALS: BP 148/100
--- NOTE | 2018-06-10 13:07 | Anesthesia-General Post-Op ---
MAC Patient Condition Mental Status/LOC: Same as Preop Cardiovascular: Satisfactory Nausea/Vomiting: Absent Respiratory: Satisfactory Pain: Controlled Complications: Absent Post Op Complications Complications None Follow Up Care/Instructions Patient Instructions None needed. Anesthesiology Discharge Order Discharge Order Patient is doing well, no complaints, stable vital signs, no apparent adverse anesthesia problems. No complications reported per nursing. HONEY ROGRES CRNA Jun 10, 2018 13:07
--- NOTE | 2018-06-10 16:10 | OPERATIVE REPORT ---
DATE OF SERVICE: 06/10/2018 PREOPERATIVE DIAGNOSIS: History of diverticulitis. POSTOPERATIVE DIAGNOSIS: Diverticulosis. PROCEDURE PERFORMED: Colonoscopy. SURGEON: Galina Whelan DO. ANESTHESIA: Per LOSS CONTROL MANAGER. ESTIMATED BLOOD LOSS: None. COMPLICATIONS: None. INDICATIONS: The patient is a 67-year-old male with a recent history of diverticulitis. He was explained risks and benefits of procedure and wished to proceed with procedure. Consent was signed in the chart. DESCRIPTION OF PROCEDURE: The patient was taken to the endoscopy suite, placed in left lateral recumbent position. Timeout was performed. Digital rectal exam was performed. There were no palpable polyps, masses or ulcerations. Scope was inserted in the rectum and advanced all the way to the cecum with minimal difficulty. Prep was adequate. Scope was slowly retracted back. There were no polyps, masses or ulceration of the cecum, ascending, transverse, descending colon. In the sigmoid colon, there was a minimal to moderate amount of diverticulosis present. No polyps, masses or ulcerations. Scope was slowly retracted back into the rectum, where it was also retroflexed noting no other pathology. Scope was returned to its normal position, slowly withdrawn until completely removed. The patient tolerated procedure well without any complications and taken to recovery room in stable condition. Job ID: [id number] DocumentID: [id number] Dictated Date: 06/10/2018 11:31:14 Color Laboratory Technician Date: 06/10/2018 16:09:29 Dictated By: GALINA WHELAN DO
== END 2018-06-10 12:26 | disposition home or self-care (01) ==
LOC: ENDO 09:54
PROVIDERS: ATTEND Surgery
DX: K57.30 Diverticulosis of large intestine without perforation or abscess without bleeding (principal); I10 Essential (primary) hypertension; K21.9 Gastro-esophageal reflux disease without esophagitis; K44.9 Diaphragmatic hernia without obstruction or gangrene; Z79.82 Long term (current) use of aspirin; Z79.899 Other long term (current) drug therapy

== ENCOUNTER → 2018-08-26 | Outpatient (CLI) | payer MEDICARE, OTHER ==
[~2018-08-26] MED LIST changes: +IOHEXOL 350 MG/ML 100 ML (OMNIPAQUE 350) VIAL IV ONE; +NS 100 ML (IVPB) BAG IV ONE; +RECEIVED CONTRAST (Hold Metformin) IV SCH
[2018-08-26 09:47] LABS: BUN/CREATININE RATIO 12; CREATININE SERUM 0.98 MG/DL (0.60-1.30); GFR ESTIMATED > 60
--- NOTE | 2018-08-26 12:04 | Diagnostic Imaging Report ---
PROCEDURE: CT chest and abdomen with contrast. TECHNIQUE: Multiple contiguous axial images were obtained through the chest and abdomen after the administration of intravenous contrast. INDICATION: Nonspecific subpleural nodules noted at abdominal CT performed 03/24/2018. FINDINGS: Tiny 2-3 mm subpleural micronodules in the lung bases are only visualized on the lung windows and they are groundglass and nonsolid in density. These are felt to be incidental scars. No dominant or suspect mass. No thoracic adenopathy or chest effusion. There is a small hiatal hernia. The aorta is nonaneurysmal. No thoracic adenopathy. There is some low-density nodularity involving left greater than right thyroid lobes. Outpatient nonemergent thyroidal ultrasound recommended. No acute or suspect chest wall pathology. Abdomen: Exophytic bilateral upper pole renal cysts greater right stable. Liver density suggests mild steatosis chronic. No bile duct dilatation. Spleen, adrenals, and pancreas are negative. No evidence for bowel obstruction or free air. The aorta is patent and nonaneurysmal. Celiac, superior mesenteric and CARLINE are patent. No evidence for end-organ ischemia. No perienteric or pericolonic edema and no inflammatory process. IMPRESSION: Chest: Subpleural benign groundglass micronodules stable. No suspicious chest lesion or acute pathology. Abdomen: Mild hepatic steatosis and stable benign renal cysts with no inflammatory process, obstruction, free air, or abscess. Dictated by: Dictated on workstation # [id number]
== END ==
LOC: RAD 09:20
PROVIDERS: ATTEND Family Medicine
DX: N28.1 Cyst of kidney, acquired (principal); K76.0 Fatty (change of) liver, not elsewhere classified; R91.8 Other nonspecific abnormal finding of lung field
CPT/HCPCS: 36415; 71260; 74160; 82565; 84520

== ENCOUNTER 2019-03-12 11:30 | Outpatient (CLI) | payer MEDICARE, OTHER ==
[~2019-03-12] VITALS: Ht 185.4 cm; Wt 88.0 kg
[~2019-03-12 11:30] MED LIST changes: -IOHEXOL 350 MG/ML 100 ML (OMNIPAQUE 350) VIAL IV ONE; +LOSA50TA63 PO; -LOSA50TA7 PO; +METR-145 PO; -METR-197 PO; -NS 100 ML (IVPB) BAG IV ONE; -RECEIVED CONTRAST (Hold Metformin) IV SCH
== END 2019-03-12 12:11 | disposition home or self-care (01) ==
LOC: PREOP 11:30
PROVIDERS: ATTEND Surgery
DX: Z01.818 Encounter for other preprocedural examination (principal)

== ENCOUNTER 2019-03-17 07:43 | Day surgery (SDC) | payer MEDICARE, OTHER ==
[~2019-03-17] VITALS: Ht 185.4 cm; Wt 88.0 kg
[2019-03-17] VITALS (9 sets, daily range): BP systolic 125–153; BP diastolic 66–102
[2019-03-17] MEDS ORDERED: LACTATED RINGERS 1,000 ML IV STA (08:08)
[2019-03-17] MEDS ORDERED: HURRICAINE EXT TUBE (BENZOCAINE) XX PRN (08:15)
[2019-03-17] MEDS ORDERED: proPOfol 200 MG/20 ML (DIPRIVAN) VIAL IV ONE (08:53)
[2019-03-17] MEDS ORDERED: MIDAZOLAM 2 MG/2 ML (VERSED) VIAL ONE (08:53)
--- NOTE | 2019-03-17 09:26 | Discharge Inst-Simple/Standard ---
Discharge Inst-Standard Patient Instructions/Follow Up Plan of Care/Instructions/FU: 2 weeks [place] Activity as Tolerated: Yes Discharge Diet: Regular Diet GALINA JAFFE DO Mar 17, 2019 09:26
--- NOTE | 2019-03-17 09:27 | Progress Note-Post Operative ---
Post-Operative Progess Note Surgeon (s)/Gas Turbine Assembler (s) Surgeon GALINA JAFFE DO Gas Turbine Assembler: na Pre-Operative Diagnosis hx erosive esophagitis, gerd Post-Operative Diagnosis hiatal hernia Procedure & Operative Findings Date of Procedure 03/17/19 Procedure Performed/Findings egd c biopsy antrum Anesthesia Type per recyclable materials distributor Estimated Blood Loss Estimated blood loss (mL): none Specimens/Packing Specimens Removed antrum GALINA JAFFE DO Mar 17, 2019 09:27
--- NOTE | 2019-03-17 10:09 | Anesthesia-General Post-Op ---
MAC Patient Condition Mental Status/LOC: Same as Preop Cardiovascular: Satisfactory Nausea/Vomiting: Absent Respiratory: Satisfactory Pain: Controlled Complications: Absent Post Op Complications Complications None Follow Up Care/Instructions Patient Instructions None needed. Anesthesiology Discharge Order Discharge Order Patient is doing well, no complaints, stable vital signs, no apparent adverse anesthesia problems. GADIEL CERRATO DO Mar 17, 2019 10:09
--- NOTE | 2019-03-17 21:16 | OPERATIVE REPORT ---
DATE OF SERVICE: 03/17/2019 PREOPERATIVE DIAGNOSES: Gastroesophageal reflux disease and history of erosive esophagitis. POSTOPERATIVE DIAGNOSIS: Hiatal hernia. PROCEDURE: EGD with biopsies. SURGEON: Galina Whelan DO ANESTHESIA: Per SCREEN ROOM OPERATOR. ESTIMATED BLOOD LOSS: None. COMPLICATIONS: None. INDICATIONS: The patient is a 68-year-old male with history of erosive esophagitis and GERD. He understands risks and benefits of procedure and wished to proceed with procedure. Consent was signed in the chart. PROCEDURE IN DETAIL: The patient was taken to the endoscopy suite, placed in the left lateral recumbent position. Timeout was performed. Scope was inserted in mouth, down the esophagus, stomach and into the duodenum without difficulty. There were no polyps, masses or ulcerations in the duodenum. Scope was slowly retracted back into the stomach where it was further insufflated. No significant erythematous changes. There were no polyps, masses or ulcerations. Scope was retroflexed noting a small hiatal hernia. Biopsy of the antrum was obtained. Scope was then slowly retracted back into the distal esophagus, which had normal appearance. There were no polyps, masses or ulcerations or erythematous changes. Scope was then slowly retracted back until completely removed. The patient tolerated the procedure well without any complications, taken to recovery room in stable condition. RECOMMENDATIONS: The patient will follow up in 2 weeks to discuss pathology results. We will continue on current medications and await biopsy results. Further recommendations pending. Job ID: [id number] DocumentID: [id number] Dictated Date: 03/17/2019 12:45:16 Lighting Engineer Date: 03/17/2019 21:14:52 Dictated By: GALINA WHELAN DO
== END 2019-03-17 10:20 | disposition home or self-care (01) ==
LOC: ENDO 07:43
PROVIDERS: ATTEND Surgery
DX: K44.9 Diaphragmatic hernia without obstruction or gangrene (principal); K29.50 Unspecified chronic gastritis without bleeding; K21.9 Gastro-esophageal reflux disease without esophagitis; I10 Essential (primary) hypertension; Z87.19 Personal history of other diseases of the digestive system; Z79.899 Other long term (current) drug therapy; Z79.82 Long term (current) use of aspirin

== ENCOUNTER → 2021-08-31 | Outpatient (CLI) | payer MEDICARE, OTHER ==
[~2021-08-31] MED LIST changes: +ASPI-1238 PO; -ASPI-983 PO; -CIPR500T4 PO; +CIPR500T5 PO; -PANT40TA3 PO; +PANT40TA52 PO
--- NOTE | 2021-08-31 10:41 | Diagnostic Imaging Report ---
EXAMINATION: PA and lateral chest at 1010 AM INDICATION: Cough, history of Covid. There are no prior studies available for comparison. The heart size is within normal limits. There are faint areas of slightly increased density in both perihilar regions. These may reflect mild pneumonia/atelectasis and could be secondary to the patient's diagnosis of Covid-19. There is no consolidated pneumonia identified nor is there any sign of a pleural effusion. The mediastinum is not widened. The osseous structures are intact. IMPRESSION: 1. There is a question of mild bilateral perihilar pneumonia. Clinical follow-up is recommended. 2. There is no acute cardiopulmonary abnormality noted otherwise. Dictated by: Dictated on workstation # [id number]
== END ==
LOC: RAD 09:30
DX: R05.9 Cough, unspecified (principal); R06.02 Shortness of breath; Z86.16 Personal history of COVID-19
CPT/HCPCS: 71046